=== PATIENT | female | born 1980 | race Caucasian/White ===

== ENCOUNTER 2016-06-03 16:08 | Emergency (ER) | payer OTHER ==
[2016-06-03 16:28] VITALS: BP 146/65; PULSE 78; TEMP 98.1
[2016-06-03] MEDS ORDERED: AMOXICILLIN/CLAVULANATE 875 MG TAB PO ONE (16:44)
[2016-06-03] MEDS ORDERED: OXYCODONE HCL 5 MG TABLET PO ONE (16:44)
--- NOTE | 2016-06-03 16:48 | EDPRACDOC ---
- General Information Chief Complaint: Toothache Stated Complaint: TOOTHACHE Time Seen by Provider: 06/03/16 16:29 Information Source: Patient Mode Of Arrival: Car Home Medications: Home Medications Amoxicillin/Clavulanate Potas. [Augmentin] 875 mg PO BID #20 tab 06/03/16 Oxycodone Immediate Release [Oxycodone Immediate Release (OxyIR)] 5 mg PO Q6H PRN #30 tab 06/03/16 Allergies/Adverse Reactions: Allergies Allergy/AdvReac Type Severity Reaction Status Date / Time No Known Allergies Allergy Verified 02/25/16 18:10 - History of Present Illness Onset: 2 DAYS AGO HPI: PT PRESENTS WITH PAIN AND SWELLING OF THE LEFT FACE AND LEFT UPPER JAW DUE TO ABSCESS OF LEFT 2ND MOLAR. Reported Tooth Problem: LEFT UPPER SECOND MOLAR Pain Severity: Reports: Moderate Relevant History of: Reports: None Modifying Factors: improves with: Heat, Cold, Chewing Associated Signs and Symptoms: Reports: None ED Past Medical History - History Reviewed Yes Nurses notes reviewed and agree except as marked - Patient Medical History Psychological History: Denies: Depression - Social Medical History Smoking Status: Heavy tobacco smoker (5 or more cigarettes/day or daily pipe/ cigar) EDM Review of Systems - Review of Systems ROS Negative Except as Marked: Yes All systems reviewed and were negative except as marked - Physical Exam Constitutional: Alert Oriented to: Time, Person, Place Last recorded Vital Signs: Last Vital Signs Temp 98.1 F 06/03/16 16:28 Pulse 78 06/03/16 16:28 Resp 20 06/03/16 16:28 BP 146/65 06/03/16 16:28 Pulse Ox 100 06/03/16 16:28 Oxygen Pulse Oxygen Saturation 100 O2 Device Oxygen Flow Rate Fraction of Inspired Oxygen ( FIO2) - HEENT Head: Normal ( normocephalic) Eye Exam: Normal (PERRL, EOMI, Sclera white) Oropharynx: Normal (Pharynx:Moist without exudate,Gums-no swelling) Tympanic Membrane: Normal Nose: No Symptoms Reported (septum midline) Neck: Normal (FROM, trachea at midline) - Respiratory/Cardiovascular Respiratory: Normal - CTA (BBS clear to auscultation without adventitious sounds ) Cardiovascular: Normal (RRR without murmur, gallop or rub) - GI Auscultation: Normal (NABS) Palpation: Normal (Soft,No rebound or guarding, non distended) Tenderness: Non tender Deleon's Sign: Negative Rectal Exam: Deferred - Musculoskeletal Back: Normal (Non-Tender) Extremities: Normal (Normal tone, Pulses 2+ No cyanosis or edema, FROM) - Integumentary Skin: Normal, Warm, Dry Lymphatics: Normal (no adenopathy) - Neurologic Memory Impaired: Normal Motor Function: Normal (Normal tone, Pulses 2+ No cyanosis or edema, FROM) Cranial Nerve: Normal (CN II-X11 intact sensation, strength 5/5) Cerebellar: Normal Mood Description: Normal Perception: Normal ED Tooth Problem Exam - HEENT Face: Swelling, Tender Teeth: Right: Molar-2 Upper Gingiva: Tender, Swelling Palate: Normal Mouth Range of Motion: Normal Sinuses: Normal Oropharynx: Normal Neck: Normal - Differential Diagnosis Periodontal Abscess Decision Time to Discharge: 16:50 - Departure Disposition: Home Condition: Stable Final Diagnosis: Dental abscess Instructions: Dental Abscess (ED) Education/Counseling Given To: Patient Education/Counseling Given Regarding: Diagnosis, Treatment, Prognosis, Follow Up Referrals: None,No Provider [Primary Care Provider] - One Week Prescriptions: New Amoxicillin/Clavulanate Potas. [Augmentin] 875 mg PO BID #20 tab Continue Oxycodone Immediate Release [Oxycodone Immediate Release (OxyIR)] 5 mg PO Q6H PRN #30 tab PRN Reason: Pain Discontinued Clindamycin [Cleocin] 300 mg PO TID #60 capsule Additional Instructions: INCREASE FLUID INTAKE. FOLLOW UP WITH PRIMARY CARE PROVIDER NEXT WEEK. TAKE ALL ANTIBIOTICS PRESCRIBED. RETURN TO THE ED FOR WORSENING SYMPTOMS OR CONCERNS.
[2016-06-03 16:51] VITALS: BMI 21.2
== END 2016-06-03 17:16 | disposition home or self-care (01) ==
LOC: EDMC 16:08
DX: K04.7 Periapical abscess without sinus (principal)
CPT/HCPCS: 99282; J3490